=== PATIENT | female | born 1955 | race Two or more races ===

== ENCOUNTER 2021-04-16 07:33 | Emergency (ER) | payer OTHER ==
[~2021-04-16] VITALS: Ht 154.9 cm; Wt 54.4 kg
[~2021-04-16 07:33] MED LIST: ATIVAN1 M1 PO
== END 2021-04-16 16:39 | disposition home or self-care (01) ==
LOC: ER 07:33
DX: I95.89 Other hypotension (principal); R11.2 Nausea with vomiting, unspecified; C52 Malignant neoplasm of vagina

== ENCOUNTER 2021-04-30 06:00 | Day surgery (SDC) | payer OTHER | END 2021-04-30 13:00 | disposition home or self-care (01) | LOC: CIR.AMB 06:00 | PROVIDERS: ATTEND Obstetrics & Gynecology Gynecologic Oncology | DX: K62.89 Other specified diseases of anus and rectum (principal) ==